=== PATIENT | female | born 1980 | race African-American/Black ===

== ENCOUNTER 2016-12-24 08:55 | Emergency (ER) | payer OTHER ==
[~2016-12-24] VITALS: Ht 165.1 cm; Wt 60.0 kg
[~2016-12-24 08:55] MED LIST: IBUPROFEN
[2016-12-24] MEDS ORDERED: KETOROLAC 30MG/ML VIAL IV STA (10:02)
[2016-12-24] MEDS ORDERED: ONDANSETRON HCL 4MG/2ML VIAL IV STA (10:02)
[2016-12-24] MEDS ORDERED: MORPHINE SULFATE 4 MG/ML CPJ (NOT FOR IM USE) IV STA (10:02)
[2016-12-24] MEDS ORDERED: SODIUM CHLORIDE 0.9% 1,000 ML IV ONE (10:02)
[2016-12-24 10:21] LABS: BASOPHILS % 0.5 % (0.0-2.0); EOSINOPHILS % 0.1 % (0.0-5.0); HEMATOCRIT. 36.1 % (36.0-48.0); HEMOGLOBIN. 12.4 g/dL (12.0-16.0); MEAN CORPUSCULAR HEMOGLOBIN 26.4 pg (28.0-32.0); MEAN CORPUSCULAR VOLUME 76.7 fL (81.0-99.0); MEAN PLATELET VOLUME 7.4 fl (7.4-10.4); MONOCYTES % 7.7 % (2.0-8.0); NEUTROPHILS % 51.7 % (40.0-76.0); PLATELET 246 x1000/uL (130-400); RED CELL DISTRIBUTION WIDTH 13.5 % (11.6-14.6)
[2016-12-24 10:29] LABS: CHLORIDE 106 mEq/L (98-107); INR 1.2; PROTHROMBIN TIME 12.1 sec (9.4-11.6)
[2016-12-24 10:34] LABS: CARBON DIOXIDE 24 mEq/L (21-32)
[2016-12-24 10:47] VITALS: BP 128/73
[2016-12-24 11:23] LABS: CLARITY URINE CLEAR (CLEAR); COLOR URINE YELLOW (YELLOW); GLUCOSE URINE NEGATIVE (NEGATIVE); KETONES URINE 1+ (NEGATIVE); LEUKOCYTE ESTERASE URINE NEGATIVE (NEGATIVE); NITRITE URINE NEGATIVE (NEGATIVE); OCCULT BLOOD URINE NEGATIVE (NEGATIVE); PH URINE >=9.0 (4.5-8.0); PROTEIN URINE NEGATIVE (NEGATIVE); SPECIFIC GRAVITY URINE 1.016 (1.005-1.030)
== END 2016-12-24 12:43 | disposition home or self-care (01) ==
LOC: ER 09:26
DX: N28.1 Cyst of kidney, acquired (principal); Z88.0 Allergy status to penicillin; Z98.890 Other specified postprocedural states; Z87.442 Personal history of urinary calculi
CPT/HCPCS: 36415; 76770; 80053; 81003; 81025; 83690; 85025; 85610; 96361; 96374; 96375; 99285; J1885; J2270; J2405; J7030; Z7610